=== PATIENT | male | born 1985 | race Caucasian/White ===

== ENCOUNTER 2017-05-01 21:02 | Emergency (ER) | payer BC ==
[2017-05-01 21:07] VITALS: BP 144/90
[2017-05-01] MEDS ORDERED: Bacitracin/Neomycin/Polymyxin B Oint 0.9 GM U/D Packet TOP ONE (21:20)
--- NOTE | 2017-05-01 21:59 | EDM.PDOC ---
ED HPI GENERAL MEDICAL PROBLEM - General Chief Complaint: Laceration Stated Complaint: laceration Time Seen by Provider: 05/01/17 21:15 Source of Information: Reports: Patient ([id number]), Family History Limitations: Reports: No Limitations - History of Present Illness INITIAL COMMENTS - FREE TEXT/NARRATIVE: Patient is a 31-year-old who was brought in by his with a laceration left index this was a 3 by half centimeter laceration the low glycogen checkmark in the medial aspect of the index finger at this time the area was prepped and draped in the usual form and 1% lidocaine was injected after appropriate levels of anesthesia the wound was closed with 5-0 nylon interrupted 5 patient tolerated procedure well will be sent home suture removal in 10 days Onset: Sudden Duration: Minutes: (30 minutes) Location: Reports: Upper Extremity, Left (Index finger) Quality: Reports: Ache Severity: Mild Improves with: Reports: None Worsens with: Reports: None Context: Reports: Trauma Associated Symptoms: Reports: No Other Symptoms left index finger Pain Score (Numeric/FACES): 2 - Related Data Allergies Allergy/AdvReac Type Severity Reaction Status Date / Time No Known Allergies Allergy Verified 05/01/17 21:03 Home Meds: Home Meds . [No Known Home Meds] 05/01/17 [History] Past Medical History - Past Surgical History HEENT Surgical History: Reports: Oral Surgery Male Surgical History: Reports: Vasectomy Social & Family History - Tobacco Use Smoking Status *Q: Never Smoker ED ROS GENERAL - Review of Systems Review Of Systems: See Below Constitutional: Reports: No Symptoms HEENT: Reports: No Symptoms Respiratory: Reports: No Symptoms Cardiovascular: Reports: No Symptoms Endocrine: Reports: No Symptoms GI/Abdominal: Reports: No Symptoms : Reports: No Symptoms Musculoskeletal: Reports: No Symptoms Skin: Reports: No Symptoms Neurological: Reports: No Symptoms Psychiatric: Reports: No Symptoms Hematologic/Lymphatic: Reports: No Symptoms Immunologic: Reports: No Symptoms ED EXAM, SKIN/RASH Exam: See Below Exam Limited By: No Limitations General Appearance: Alert, WD/WN, No Apparent Distress, Anxious Ears: Normal External Exam, Normal Canal, Hearing Grossly Normal, Normal TMs Nose: Normal Inspection, Normal Mucosa, No Blood Throat/Mouth: Normal Inspection, Normal Lips, Normal Teeth, Normal Gums, Normal Oropharynx, Normal Voice, No Airway Compromise Head: Atraumatic, Normocephalic Neck: Normal Inspection, Supple, Non-Tender, Full Range of Motion Respiratory/Chest: No Respiratory Distress, Lungs Clear, Normal Breath Sounds, No Accessory Muscle Use, Chest Non-Tender Cardiovascular: Normal Peripheral Pulses, Regular Rate, Rhythm, No Edema, No Gallop, No JVD, No Murmur, No Rub GI/Abdominal: Normal Bowel Sounds, Soft, Non-Tender, No Organomegaly, No Distention, No Abnormal Bruit, No Mass (Male) Exam: Deferred Rectal (Males) Exam: Deferred Back Exam: Normal Inspection, Full Range of Motion, NT Extremities: Other (Laceration left index finger 3 cm by half centimeters checkmark) Neurological: Alert, Oriented, CN II-XII Intact, Normal Cognition, Normal Gait, Normal Reflexes, No Motor/Sensory Deficits Psychiatric: Normal Affect, Normal Mood Skin: Warm, Dry Location, Skin: Upper Extremity, Left Course - Vital Signs Last Recorded V/S: Last Vital Signs Temp 98.1 F 05/01/17 21:03 Pulse 76 05/01/17 21:03 Resp 20 05/01/17 21:03 BP 144/90 H 05/01/17 21:03 Pulse Ox 99 05/01/17 21:03 - Orders/Labs/Meds Meds: Medications Discontinued Medications Generic Name Dose Route Start Last Admin Trade Name Donis PRN Reason Stop Dose Admin Lidocaine HCl 5 ml 05/01/17 21:19 05/01/17 21:22 Xylocaine-Mpf 1% INJECT 05/01/17 21:20 5 ml ONETIME ONE Administration Neomycin/Polymyxin/Bacitracin 1 each 05/01/17 21:20 05/01/17 21:23 Triple Antibiotic Oint TOP 05/01/17 21:21 1 each ONETIME ONE Administration Departure - Departure Time of Disposition: 22:02 Disposition: Home, Self-Care 01 Condition: Good Clinical Impression: Laceration of left index finger - Discharge Information Instructions: Laceration Care, Adult, [id number], Sutured Wound Care, Easy-to -Read Referrals: Jon Rhodes PA-C [Primary Care Provider] - Forms: ED Department Discharge Care Plan Goals: Patient sent home instructed to return in 10 days for suture removal single- layer closure
== END 2017-05-01 22:12 | disposition home or self-care (01) ==
LOC: LL.ED 21:02
DX: S61.211A Laceration without foreign body of left index finger without damage to nail, initial encounter (principal); W45.8XXA Other foreign body or object entering through skin, initial encounter
CPT/HCPCS: 12002; 99282